=== PATIENT | female | born 1935 | race Caucasian/White ===

== ENCOUNTER 2016-12-08 07:33 | Inpatient (IN) | payer MEDICARE, BC ==
[~2016-12-08 07:33] MED LIST: ASPIRIN EC81 MG PO; CALCIUM 600 +1 EA24 PO; COLACE100 M1 PO; COZAAR50 M1 PO; FISH OIL 1,2001 EAC5 PO; LIPITOR40 M1 PO; MUPIROCIN22 G2 TP; NORVASC10 M2 PO; ONE DAILY FOR1 EAC4 PO; PROTONIX40 M2 PO; REQUIP1 M1 PO
[2016-12-09 05:29] LABS: BASO % 0.2 % (0-2); EOS % 2.1 % (0-7); EOSINOPHIL ABSOLUTE COUNT 0.2 tho/cmm (0.0-0.7); HCT-HEMATOCRIT 37.2 % (34.0-49.0); HGB-HEMOGLOBIN 12.6 gm/dl (12.0-15.5); IMMATURE GRANULOCYTES ABSOLUTE 0.01 tho/cmm (0-0.03); IMMATURE GRANULOCYTES PERCENT 0.1 % (0-0.3); LYMPH % 20.9 % (20-45); LYMPH ABSOLUTE COUNT 1.7 tho/cmm (0.8-4.5); MCHC MEAN CORPUSCULAR HGB CONC 33.9 % (32.0-36.0); MCV (MEAN CELL VOLUME) 88.6 fl (82.0-96.0); MEAN PLATELET VOLUME 9.8 cmc (9.4-12.4); MONO % 8.6 % (0-12); MONOCYTE ABSOLUTE COUNT 0.7 tho/cmm (0.0-1.2); NEUTROPHIL ABSOLUTE COUNT 5.6 tho/cmm (1.6-8.0); NEUTROPHIL-AUTOMATED 5.6 tho/cmm (1.6-8.0); NEUTROPHILS % 68.1 % (40-80); PLATELET COUNT 181 tho/cmm (150-450); RED CELL DISTRIBUTION WIDTH 12.5 % (12.4-16.4); WHITE BLOOD COUNT 8.3 tho/cmm (4.0-10.0)
[2016-12-09 05:31] LABS: ANION GAP 8 mmol/L (0-20); BLOOD UREA NITROGEN 10 mg/dl (6-24); CALCIUM 8.8 mg/dl (8.5-10.5); CARBON DIOXIDE-VENOUS 31 mmol/L (22-32); CHLORIDE 107 mmol/l (96-110); GLUCOSE 112 mg/dL (70-110); POTASSIUM 4.4 mmol/L (3.7-5.1); SODIUM 142 mmol/L (135-145); eGFR VALUE FOR BLACK 70 mL/Min
[2016-12-10] MEDS ORDERED: TYLENOL325 M2 PO (13:12)
[2016-12-10] MEDS ORDERED: MOBIC7.5 M2 PO (13:13)
[2016-12-10] MEDS ORDERED: ROXICODONE5 M2 PO (13:16)
[2016-12-10] MEDS ORDERED: TRAMADOL HCL50 M2 PO (13:17)
== END 2016-12-10 15:11 | disposition home health service (06) | DRG 470 ==
LOC: SHSC 07:33 → ORE 09:03 → PACU 11:06 → 5EA 11:58
PROVIDERS: Internal Medicine; Physician Assistant; ADMIT Orthopaedic Surgery Foot and Ankle Surgery
PROC: 0SRC0J9 Replacement of Right Knee Joint with Synthetic Substitute, Cemented, Open Approach (ICD-10-PCS; principal; 2016-12-08)
DX: M17.11 Unilateral primary osteoarthritis, right knee (principal); I10 Essential (primary) hypertension; I25.10 Atherosclerotic heart disease of native coronary artery without angina pectoris; Z95.1 Presence of aortocoronary bypass graft; E78.5 Hyperlipidemia, unspecified; G25.81 Restless legs syndrome; Z23 Encounter for immunization
CPT/HCPCS: C1713; C1776; G0009; J0171; J0690; J1170; J1885; J2270; J2405; J2795